=== PATIENT | female | born 1985 | race Caucasian/White ===

== ENCOUNTER 2019-08-08 11:16 | Emergency (ER) | payer OTHER ==
[2019-08-08] MEDS ORDERED: Ondansetron PF 4 MG/2 ML Vial ONE (12:23)
[2019-08-08] MEDS ORDERED: Ketorolac Tromethamine 30 MG/ML VIAL ONE (12:23)
--- NOTE | 2019-08-08 13:12 | RAD ---
LUMBAR SPINE 3 VIEWS: Date: 08/08/19 HISTORY: Back pain. FINDINGS: Lumbar vertebra maintain normal height and alignment. Disc spaces are normally maintained. No evidenc e of spondylolisthesis. IMPRESSION: Unremarkable lumbar spine. POS: MICHOACANO
== END 2019-08-08 13:05 | disposition home or self-care (01) ==
LOC: MADERS 11:16
DX: M54.42 Lumbago with sciatica, left side (principal); F41.9 Anxiety disorder, unspecified; F17.210 Nicotine dependence, cigarettes, uncomplicated
CPT/HCPCS: 72100; 96374; 96375; J1885; J2405

== ENCOUNTER 2019-10-02 13:56 | Emergency (ER) | payer OTHER ==
--- NOTE | 2019-10-02 14:59 | RAD ---
Exam: XR Hand Rt 3 View STANDARD HISTORY: Right hand pain after hitting a door one day ago. COMPARISON: None FINDINGS: There is a boxer's type fracture involving the distal right fifth metacarpal with mild apex dorsal an d medial angulation of the fracture fragments. Mild separation of the fracture fragments is present. There is overlying subcutaneous soft tissue swelling identified. No additional acute fracture, dislocation, or other acute osseous abnormality is identified. IMPRESSION: Boxer's type fracture right fifth metacarpal.
[2019-10-02] MEDS ORDERED: Ibuprofen 800 MG TAB ONE (15:41)
[2019-10-02] MEDS ORDERED: Acetaminophen 500 MG TAB ONE (15:41)
== END 2019-10-02 15:55 | disposition home or self-care (01) ==
LOC: MADERS 13:56
DX: J11.1 Influenza due to unidentified influenza virus with other respiratory manifestations (principal)
CPT/HCPCS: 29125

== ENCOUNTER 2019-12-23 01:47 | Emergency (ER) | payer OTHER ==
[2019-12-23] MEDS ORDERED: Fosphenytoin Sodium 500 mg/10 ml Vial ONE (02:30)
[2019-12-23] MEDS ORDERED: Sodium Chloride 0.9% 100 ML BAG ONE (08:37)
== END 2019-12-23 03:33 | disposition home or self-care (01) ==
LOC: MADERS 01:47
DX: G40.909 Epilepsy, unspecified, not intractable, without status epilepticus (principal); F17.210 Nicotine dependence, cigarettes, uncomplicated; Z91.14 Patient's other noncompliance with medication regimen; Z79.899 Other long term (current) drug therapy
CPT/HCPCS: 96365; J3490; Q2009

== ENCOUNTER 2020-11-29 00:38 | Emergency (ER) | payer OTHER, SELFPAY ==
[2020-11-29] MEDS ORDERED: Ibuprofen 800 MG TAB ONE (01:12)
[2020-11-29] MEDS ORDERED: Acetaminophen 500 MG TAB ONE (01:12)
--- NOTE | 2020-11-29 08:59 | RAD ---
LEFT ELBOW RADIOGRAPHS FOUR VIEWS: 11/29/20 PROVIDED CLINICAL HISTORY: Pain. FINDINGS: There is no evidence for fracture of other acute osseous abnormality. If there is persistent clinical concern, conservative management and follow-up imaging are advised. IMPRESSION: As above. POS: MELONY
== END 2020-11-29 01:23 | disposition home or self-care (01) ==
LOC: MADERS 00:38
DX: S53.402A Unspecified sprain of left elbow, initial encounter (principal); G40.909 Epilepsy, unspecified, not intractable, without status epilepticus; F17.210 Nicotine dependence, cigarettes, uncomplicated; Y04.0XXA Assault by unarmed brawl or fight, initial encounter

== ENCOUNTER 2021-02-04 18:02 | Emergency (ER) | payer SELFPAY ==
[2021-02-04 18:35] LABS: Bilirubin Negative (Negative); Blood, Urine Negative (Negative); Clarity Cloudy (Clear); Glucose, Urine (Dipstick) Negative (Negative); Ketone, Urine Trace mg/dL (Negative); Leukocyte Negative (Negative); Nitrite Positive (Negative); Protein, Urine (Dipstick) Negative (Neg-Trace)
[2021-02-04 18:40] LABS: Bacteria/HPF 4+ HPF (None Seen); RBC/HPF None Seen HPF (0-3); Squamous Epithelial 0-3 HPF (0-3); WBC/HPF 0-3 HPF (0-3)
[2021-02-04 18:41] LABS: Pregnancy Test - Urine (BHCG) Negative (Negative); Pregu Control Background? CLEAR/WHITE (CLR/WHITE); Pregu Control Bar Appear? YES (CONTROL BAR)
[2021-02-04] MEDS ORDERED: Lidocaine 1% 20 ML MDV ONE (18:48)
[2021-02-04] MEDS ORDERED: cefTRIAXone\\ROCEPHIN 1 GM VIAL ONE (18:48)
== END 2021-02-04 20:05 | disposition home or self-care (01) ==
LOC: MADERS 18:02
DX: N12 Tubulo-interstitial nephritis, not specified as acute or chronic (principal); F17.210 Nicotine dependence, cigarettes, uncomplicated
CPT/HCPCS: 81003; 81015; 81025; 96372; 99284; J0696

== ENCOUNTER 2021-07-11 06:21 | Emergency (ER) | payer SELFPAY ==
[2021-07-11] MEDS ORDERED: Sodium Chloride 0.9% 1,000 ML ONE ×2 (07:45→09:54)
[2021-07-11] MEDS ORDERED: Fentanyl 100 MCG/2 ML VIAL ONE (07:45)
[2021-07-11 07:50] LABS: BHCG - Serum Negative (NEGATIVE); Pregs Control Background? CLEAR/WHITE (CLR/WHITE); Pregs Control Bar Appear? YES (CONTROL BAR)
[2021-07-11 07:54] LABS: #Basophils 0.1 thou/uL (0.0-0.2); #Eosinphils 0.6 thou/uL (0.0-0.7); #Lymphocytes 3.1 thou/uL (1.20-3.40); #Monocytes 0.5 thou/uL (0.11-0.59); #Neutrophils 10.5 thou/uL (1.40-6.50); %Eosinophils 4.2 % (0.0-10.0); %Lymphocytes 20.7 % (21.0-51.0); %Monocytes 3.2 % (0.0-10.0); %Neutrophils 70.9 % (42.0-75.0); Hemoglobin 14.7 g/dL (12.0-16.0); Mean Corpuscular Hemoglobin 32.4 pg (27.0-31.0); Mean Corpuscular Volume 98.2 fL (78.0-98.0); Mean Platelet Volume 6.1 fL (7.4-10.4); Platelet Count 364 thou/uL (130-400); RBC Distribution Width 11.5 % (11.5-14.5); Red Blood Cell (RBC) Count 4.54 mill/uL (4.20-5.40); White Blood Cell (WBC) Count 14.8 thou/uL (4.8-10.8)
[2021-07-11 08:01] LABS: ALT (SGPT) 16 U/L (8-55); AST (SGOT) 19 U/L (5-34); Albumin 4.5 g/dL (3.5-5.0); Alkaline Phosphatase 59 U/L (40-110); Anion Gap 13 mmol/L (10-20); BUN (Urea Nitrogen) 8 mg/dL (7.0-18.7); Bilirubin, Total 0.3 mg/dL (0.2-1.2); CK (CPK) 69 U/L (29-168); Calc. Creatinine Clearance 0 mL/min (70-130); Carbon Dioxide 23 mmol/L (22-29); Chloride 110 mmol/L (98-107); Globulin 3.2 g/dL (2.4-3.5); Glucose 90 mg/dL (70-105); Potassium 3.7 mmol/L (3.5-5.1); Protein, Total 7.7 g/dL (6.0-8.3); Sodium 142 mmol/L (136-145)
[2021-07-11 08:39] LABS: Bilirubin Negative (Negative); Blood, Urine Negative (Negative); Clarity Clear (Clear); Glucose, Urine (Dipstick) Negative (Negative); Ketone, Urine Negative (Negative); Leukocyte Negative (Negative); Nitrite Negative (Negative); Protein, Urine (Dipstick) Negative (Neg-Trace); Specific Gravity, Urine 1.025 (1.005-1.030); Urobilinogen 0.2 mg/dL (Less than 2); pH, Urine 5.5 (5.0-9.0)
[2021-07-11 10:04] LABS: Hemoglobin 12.9 g/dL (12.0-16.0)
[2021-07-11] MEDS ORDERED: Iopamidol 370 76% 100 ML VIAL ONE (10:17)
[2021-07-15 21:48] LABS: Chlamydia by PCR Not Detected (NotDetected); GC by PCR Not Detected (NotDetected)
== END 2021-07-11 10:53 | disposition home or self-care (01) ==
LOC: MADERS 06:21
DX: N83.291 Other ovarian cyst, right side (principal); G40.909 Epilepsy, unspecified, not intractable, without status epilepticus; F17.210 Nicotine dependence, cigarettes, uncomplicated; R00.0 Tachycardia, unspecified; Z85.830 Personal history of malignant neoplasm of bone; Z85.841 Personal history of malignant neoplasm of brain; Z85.89 Personal history of malignant neoplasm of other organs and systems
CPT/HCPCS: 74177; 80053; 81003; 82550; 84703; 85025; 86850; 86900; 86901; 87480; 87491; 87510; 87591; 87660; 96374; J3010; J7050; Q9967

== ENCOUNTER 2021-09-15 13:14 | Emergency (ER) | payer OTHER, SELFPAY ==
[2021-09-15] MEDS ORDERED: Bupivacaine HCl 0.5%/Epinephrine 1:200,000/PF 30 ml Vial ONE (14:17)
[2021-09-15] MEDS ORDERED: Penicillin V Potassium 250 MG TAB ONE (14:17)
== END 2021-09-15 14:44 | disposition home or self-care (01) ==
LOC: MADERS 13:14
DX: S03.2XXA Dislocation of tooth, initial encounter (principal); F17.210 Nicotine dependence, cigarettes, uncomplicated; G40.909 Epilepsy, unspecified, not intractable, without status epilepticus; Z85.41 Personal history of malignant neoplasm of cervix uteri; X58.XXXA Exposure to other specified factors, initial encounter
CPT/HCPCS: 64400

== ENCOUNTER 2021-11-15 00:40 | Emergency (ER) | payer OTHER ==
[2021-11-15] MEDS ORDERED: Ondansetron ODT 4 MG TAB ONE (01:20)
[2021-11-15] MEDS ORDERED: Ketorolac Tromethamine 30 MG/ML VIAL ONE (01:20)
[2021-11-15] MEDS ORDERED: Clindamycin 150 MG CAP ONE (01:20)
== END 2021-11-15 01:50 | disposition home or self-care (01) ==
LOC: MADERS 00:40
DX: K04.7 Periapical abscess without sinus (principal); F17.210 Nicotine dependence, cigarettes, uncomplicated
CPT/HCPCS: 96372; 99283; J1885; Q0162